=== PATIENT | female | born 1990 | race African-American/Black ===

== ENCOUNTER 2023-10-15 11:03 | Emergency (ER) | payer BC, SELFPAY ==
[2023-10-15 11:36] VITALS: BP 125/78; PULSE 60; RESP 18; TEMP 36.5; O2SAT 100
[2023-10-15] MEDS: IBUPROFEN 600 MG TABLET PO (12:47)
[2023-10-15] MEDS: ACETAMINOPHEN 500 MG TABLET 1000 MG PO (12:47)
[2023-10-15] MEDS: PSEUDOEPHEDRINE HCL 30 MG TABLET 60 MG PO (12:48)
--- NOTE | 2023-10-15 13:19 | ED.HA ---
HPI - Headache General Chief Complaint: Headache Stated Complaint: headache, cough, ear pressure Time Seen by Provider: 10/15/23 11:45 Source: patient Mode of arrival: ambulatory Limitations: no limitations History of Present Illness HPI Narrative: Patient is a 33-year-old female who presents to the ED with URI symptoms. Patient reports having a mild cough, congestion, sinus pressure, rhinorrhea, ear pressure for the last several days. She notes that her son was sick with RSV last week. She denies any fever, difficulty breathing, sore throat, ear drainage. Patient has not tried anything for her symptoms. Related Data Allergies Allergy/AdvReac Type Severity Reaction Status Date / Time No Known Allergies Allergy Verified 10/15/23 11:04 Review of Systems Review of Systems: CONSTITUTIONAL: Denies fever, chills, or sweats. ENT: See HPI. CARDIOVASCULAR: Denies chest pain, palpitations, or edema. RESPIRATORY: See HPI. GASTROINTESTINAL: Denies abdominal pain, nausea, vomiting. All systems reviewed & are unremarkable except as noted in HPI and below Exam Narrative: GENERAL: Well appearing, well-nourished, non-toxic, in no acute distress. HEAD: Normocephalic, atraumatic. EENT: PERRL/EOMI, conjunctiva clear bilaterally. TMs clear bilaterally, no evidence of AOE/AOM. No cerumen impaction. NECK: Supple. No adenopathy, no masses. RESPIRATORY: Airway patent, respirations nonlabored. Clear to auscultation bilaterally, no rales, rhonchi, wheezing. CARDIOVASCULAR: Regular rate and rhythm without murmurs, rubs, or gallops. Radial pulses 2+ and equal bilaterally. MUSCULOSKELETAL: Moves all extremities. Strength/ROM intact without gross deformities. SKIN: Warm, dry, normal color. No rashes. NEURO: A&O X3. Speech clear. Cranial nerves II-XII grossly intact. Steady gait. No ataxic movements. PSYCHIATRIC: Appropriate mood and affect. Normal interaction. Course Vital Signs Vital signs: Vital Signs Temperature 97.7 F 10/15/23 11:36 Pulse Rate 60 10/15/23 11:36 Respiratory Rate 18 10/15/23 11:36 Blood Pressure 125/78 10/15/23 11:36 Pulse Oximetry 100 10/15/23 11:36 Oxygen Delivery Room Air 10/15/23 11:36 Temperature 97.7 F 10/15/23 11:36 Pulse Rate 60 10/15/23 11:36 Respiratory Rate 18 10/15/23 11:36 Blood Pressure 125/78 10/15/23 11:36 Pulse Oximetry 100 10/15/23 11:36 Oxygen Delivery Room Air 10/15/23 11:36 MDM - Headache MDM Narrative Medical decision making narrative: Patient presented to ED with several day history of URI symptoms. Son with RSV last week. Patient's vital stable upon arrival. Afebrile. Exam benign. She has not tried anything for her symptoms. Given Tylenol, Motrin, Sudafed in the ED. RSV testing positive in the ED. Discussed management of viral infection, return precautions. Patient discharged in stable condition. Medical Records Attestation: I reviewed the patient's medical records. Lab Data Attestation: I reviewed the patient's lab results. Labs: Lab Results 10/15/23 Range/Units 12:49 Influenza A (RT-PCR) Negative (Negative) Influenza B (RT-PCR) Negative (Negative) RSV (RT-PCR) Positive A (Negative) SARS-CoV-2 RNA (RT-PCR) Negative (Negative) Discharge Plan Discharge Clinical Impression: Respiratory syncytial virus (RSV) Upper respiratory infection Qualifiers: URI type: unspecified URI Qualified Code(s): J06.9 - Acute upper respiratory infection, unspecified Patient Disposition: Home, Self-Care Condition: Stable Instructions: Antibiotic Form, Upper Respiratory Infection (ED), Cold Symptoms (ED) Additional Instructions: Your RSV testing was positive. Stay well-hydrated at home. Recommend electrolyte rich fluids, Gatorade, Pedialyte, body armor. Tessalon Perles as needed for cough. Tylenol and Ibuprofen for discomfort and/or fevers. Recommend [id number] cough and cold medicines for symptom
[2023-10-15 13:55] LABS: Influenza A QL RT-PCR Negative (Negative); Influenza B QL RT-PCR Negative (Negative); RSV RNA, RT-PCR Positive (Negative); SARS-CoV-2 RNA PCR Negative (Negative)
== END 2023-10-15 14:13 | disposition home or self-care (01) ==
PROVIDERS: Emergency Provider Physician Assistant
DX: J06.9 Acute upper respiratory infection, unspecified (principal); B97.4 Respiratory syncytial virus as the cause of diseases classified elsewhere; Z20.822 Contact with and (suspected) exposure to COVID-19
CPT/HCPCS: 87637; 99283; A9270

== ENCOUNTER 2023-11-19 06:56 | Emergency (ER) | payer BC, SELFPAY ==
[2023-11-19 06:57] VITALS: BP 123/78; PULSE 73; RESP 19; TEMP 36.2; O2SAT 100
--- NOTE | 2023-11-19 07:50 | ED.GENADULT ---
HPI - General Adult General Chief complaint: Skin/Abscess/Foreign Body Stated complaint: abcess under left arm Time Seen by Provider: 11/19/23 07:09 History of Present Illness HPI narrative: 33-year-old female presenting to the emergency department for evaluation of abscess to her left armpit. Patient does have history of hidradenitis but has not yet had follow-up with dermatology. Patient states that she began having some soreness in her bed last night and then the soreness worsened today. Patient is not currently on any antibiotics. Patient does not have a system specialist or a primary care physician locally. Related Data Allergies Allergy/AdvReac Type Severity Reaction Status Date / Time No Known Allergies Allergy Verified 10/15/23 11:04 Review of Systems Review of Systems: All systems reviewed & are unremarkable except as noted in HPI and below Exam Narrative: APPEARANCE: Well appearing, no pain, no distress, well-nourished. HEAD: normocephalic, atraumatic. EYES: PERRLA/EOMI, conjunctivae clear. NOSE: Normal no drainage NECK: Supple. No adenopathy, no masses. RESPIRATORY: Airway patent, respirations nonlabored. Clear to auscultation bilaterally, no rales, rhonchi, wheezing. CARDIOVASCULAR: Regular rate and rhythm without murmurs rubs or gallops. ABDOMINAL: Soft, nontender, nondistended, normal bowel sounds MUSCULOSKELETAL: Moves all extremities. Strength/ROM intact, No edema, No calf tenderness. NEURO: Alert. Cranial nerves II through XII intact. Good gait. Good coordination SKIN: Early abscess in left armpit, no fluctuance, mild tenderness to palpation Course Course Emergency Course: 33-year-old female presenting to the ED for evaluation for a suspected abscess the left armpit. Patient has hidradenitis and is being started on clindamycin. Abscess is not yet amenable to drainage. Patient was encouraged close follow-up with the primary care physician and Dermatology. All questions concerns were addressed patient was comfortable the plan for discharge and close follow-up. Patient was educated on reasons to return to the emergency department. Vital Signs Vital signs: Vital Signs Temperature 97.1 F L 11/19/23 06:57 Pulse Rate 73 11/19/23 06:57 Respiratory Rate 19 11/19/23 06:57 Blood Pressure 123/78 11/19/23 06:57 Pulse Oximetry 100 11/19/23 06:57 Oxygen Delivery Room Air 11/19/23 06:57 Temperature 97.1 F L 11/19/23 06:57 Pulse Rate 73 11/19/23 06:57 Respiratory Rate 19 11/19/23 06:57 Blood Pressure 123/78 11/19/23 06:57 Pulse Oximetry 100 11/19/23 06:57 Oxygen Delivery Room Air 11/19/23 06:57 Medical Decision Making Differential Diagnosis Differential Diagnosis: Cellulitis, hidradenitis, abscess Vital Signs Vital Signs: Vital Signs Temperature 97.1 F L 11/19/23 06:57 Pulse Rate 73 11/19/23 06:57 Respiratory Rate 19 11/19/23 06:57 Blood Pressure 123/78 11/19/23 06:57 Pulse Oximetry 100 11/19/23 06:57 Oxygen Delivery Room Air 11/19/23 06:57 Temperature 97.1 F L 11/19/23 06:57 Pulse Rate 73 11/19/23 06:57 Respiratory Rate 19 11/19/23 06:57 Blood Pressure 123/78 11/19/23 06:57 Pulse Oximetry 100 11/19/23 06:57 Oxygen Delivery Room Air 11/19/23 06:57 Discharge Plan Discharge Clinical Impression: Axillary hidradenitis suppurativa Patient Disposition: Home, Self-Care Condition: Stable Instructions: Antibiotic Form, Hidradenitis Suppurativa (ED) Additional Instructions: Warm compress as directed. antibiotic as directed until completed. Have close follow-up with your primary care physician and with dermatology. If you have any worsening symptoms or if you have any questions or concerns and please call or return to the emergency department. Prescriptions: New clindamycin HCl 150 mg capsule 150 mg PO Q6H 7 Days Qty: 28 0RF No Action benzonatate 200 mg capsule 200 mg PO TID CO
[2023-11-19] MEDS: CLINDAMYCIN HCL 150 MG CAP PO (08:02)
== END 2023-11-19 08:08 | disposition home or self-care (01) ==
PROVIDERS: Emergency Provider Emergency Medicine
DX: L73.2 Hidradenitis suppurativa (principal)
CPT/HCPCS: 99283; A9270